=== PATIENT | male | born 1935 | race Caucasian/White ===

== ENCOUNTER 2018-11-25 15:16 | Emergency (ER) | payer MEDICARE, OTHER ==
[~2018-11-25] VITALS: Wt 82.1 kg
[~2018-11-25 15:16] MED LIST: ALBU18HF IH; APIX5TAB PO; ASPRIN; ATOR20TA17 PO; CHOL400C PO; DONE5TAB PO; ESCI10TA PO; EZET10TA31 PO; HYDR25TA6 PO; LEVE-5 PO; MECL25TA2 PO; OMEP40CA3 PO; RAMI5CAP40 PO
[2018-11-25 15:34] VITALS: BP 114/61; PULSE 78; RESP 20
[2018-11-25] MEDS ORDERED: APIXABAN 5 MG TABLET PO ONE (17:00)
== END 2018-11-25 18:30 | disposition home or self-care (01) ==
LOC: E/R 15:16
DX: I82.401 Acute embolism and thrombosis of unspecified deep veins of right lower extremity (principal); M79.605 Pain in left leg; I10 Essential (primary) hypertension; Z95.1 Presence of aortocoronary bypass graft
CPT/HCPCS: 36415; 80053; 85025; 85610; 85730; 93971